=== PATIENT | male | born 1960 | race Caucasian/White ===

== ENCOUNTER 2019-02-13 13:45 | Outpatient (CLI) | payer BC ==
--- NOTE | 2019-02-13 15:49 | MRI ---
MRI LUMBAR SPINE WITHOUT CONTRAST: Date: 02/13/19 Multiplanar, multisequential images of lumbar spine obtained. INDICATION: Low back pain. Spinal stenosis. Right leg numbness and weakness. Comparison made to MRI lumbar spine dated 07/09/17. FINDINGS: Lumbar vertebra maintain height. Moderate degenerative changes are seen throughout the lumbar spine. Mild anterolisthesis at L4-5 is again noted, measured at approximately 5.0 mm. This was described pre viously. Slight posterolisthesis at L5-S1 is also again noted, unchanged. At L1-2, mild disc bulge flattens the thecal sac. No significant central canal or foraminal stenosis. No interval change. At L2-3, mild diffuse disc bulge flattens the thecal sac. Facet hypertrophy. Mild central canal steno sis. Bilateral foraminal stenosis, more prominent on the left. Stable from prior exam. At L3-4, diffuse disc bulge flattens the thecal sac. Facet hypertrophy is prominent. Mild central can al stenosis. Bilateral foraminal stenosis. At L4-5, anterolisthesis. Diffuse disc bulge. Prominent facet hypertrophy. Moderate central canal ministerio nosis. Bilateral foraminal stenosis. Asymmetric disc bulge and osteophyte complex extends into the ri ght foramina. At L5-S1, diffuse disc bulge with asymmetric bulge paracentrally to the right with extension into the right foramina. Facet hypertrophy. Right foraminal stenosis and encroachment. Displacement of the tr aversing right S1 nerve root. Mild central canal stenosis. Disc osteophyte complex projects to the ri ght and encroaches into the right foramina. The findings at the L5-S1 level do not appear significantly changed when compared to 2017. IMPRESSION: Degenerative disc changes throughout the lumbar spine. See findings at each level above. Findings do not appear significantly changed from 2017. POS: [facility]
--- NOTE | 2019-02-13 16:00 | MRI ---
CERVICAL SPINE MRI WITHOUT CONTRAST: HISTORY: Cervical spinal stenosis. Right leg numbness and weakness. Bilateral hand numbness and tingling. COMPARISON: None. TECHNIQUE: Cervical spine MRI is performed without intravenous Gadolinium administration. Multisequential, mult iplanar imaging is performed. FINDINGS: Appropriate T1 marrow signal intensity of the cervical vertebrae. Cervical spine vertebral body heig ht is maintained. No fracture. No significant STIR hyperintensity to suggest vertebral body edema o r ligamentous injury. Visualized brain parenchyma is unremarkable. There is atrophy of the cervical cord at C5-C6. There is T2 signal abnormality suggesting cord malacia. C2-C3: Broad-based disk-osteophyte complex. No significant central canal stenosis. Mild right and minimal left foraminal narrowing due to uncovertebral hypertrophy. C3-C4: There a central/left paracentral disk-osteophyte complex that causes mass effect upon the lef t aspect of the cord. Overall, there is mild central canal stenosis. Moderate bilateral foraminal n arrowing due to uncovertebral hypertrophy. C4-C5: Broad-based disk-osteophyte complex abuts the thecal sac. Mild central canal stenosis. Dege nerative changes in the bilateral uncovertebral joints result in severe right and moderate left cornelio inal narrowing. C5-C6: There is a broad-based disk-osteophyte complex which causes severe central canal stenosis. M oderate to severe bilateral foraminal narrowing due to uncovertebral hypertrophy. C6-C7: Broad-based disk-osteophyte complex abuts the thecal sac. Mild central canal stenosis. Mode rate to severe bilateral foraminal narrowing due to uncovertebral hypertrophy. C7-T1: No significant central canal stenosis or foraminal narrowing. IMPRESSION: 1. Degenerative disk disease at C3-C4 with mass effect upon the left hemicord. 2. 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 POS: OFF
--- NOTE | 2019-02-13 16:10 | MRI ---
THORACIC SPINE MRI WITHOUT CONTRAST: 02/13/19 HISTORY: Spinal stenosis. Leg and arm numbness/tingling. COMPARISON: None. TECHNIQUE: Thoracic spine MRI is performed without intravenous gadolinium administration. Multisequential, multi planar imaging is performed. FINDINGS: There is appropriate T1 marrow signal intensity of the thoracic vertebrae. Thoracic spine vertebral b adolfo height is maintained. There is no fracture. There is no significant STIR hyperintensity to sugges t vertebral body edema or ligamentous injury. The thoracic cord has a normal size and signal intensity. No cord malacia. No cord expansion. No T2 h yperintensity within the cord. The visualized retroperitoneal structures and solid organs are unremarkable. The visualized mediastin um, lung parenchyma and pleural spaces are unremarkable. T1-T2, T2-T3, T3-T4, T4-T5: No significant central canal stenosis or foraminal narrowing. T5-T6: Mild central canal stenosis secondary to left and right paracentral disc bulges. T6-T7: There is an anterior right disc protrusion that deforms the right aspect of the thecal sac and right cord. Mild to moderate central canal stenosis. No signal abnormality in the cord. T7-T8: There is a right paracentral osteophyte ridge that deforms the thecal sac and deforms the righ t aspect of the cord. Mild central canal stenosis. No signal abnormality of the cord. T8-T9, T9-T10, T10-T11, T11-T12 and T12-L1 do not have any significant central canal stenosis. No aparna dence of high grade foraminal narrowing. IMPRESSION: Degenerative changes of the thoracic spine as above. There is mass effect upon the right aspect of th e central spinal canal at T6-T7, T7-T8. POS: OFF
== END 2019-02-13 13:46 | disposition home or self-care (01) ==
LOC: TBSIIMAG 13:45
PROVIDERS: ATTEND Anesthesiology Pain Medicine
DX: M48.02 Spinal stenosis, cervical region (principal); M47.814 Spondylosis without myelopathy or radiculopathy, thoracic region; G95.89 Other specified diseases of spinal cord; M50.31 Other cervical disc degeneration, high cervical region; M51.36 Other intervertebral disc degeneration, lumbar region; M48.07 Spinal stenosis, lumbosacral region; M51.9 Unspecified thoracic, thoracolumbar and lumbosacral intervertebral disc disorder; M47.816 Spondylosis without myelopathy or radiculopathy, lumbar region; M25.78 Osteophyte, vertebrae; M50.91 Cervical disc disorder, unspecified, high cervical region; M47.817 Spondylosis without myelopathy or radiculopathy, lumbosacral region; M48.9 Spondylopathy, unspecified
CPT/HCPCS: 72141; 72146; 72148

== ENCOUNTER 2019-02-24 08:43 | Outpatient (CLI) | payer BC ==
[2019-02-24 10:13] LABS: Hemoglobin 14.9 g/dL (14.0-18.0); Mean Corpuscular HGB CONC 32.1 g/dL (32.0-36.0); Mean Corpuscular Hemoglobin 29.4 pg (27.0-31.0); Mean Corpuscular Volume 91.5 fL (78.0-98.0); Mean Platelet Volume 8.1 fL (7.4-10.4); Platelet Count 254 thou/uL (130-400); Red Blood Cell (RBC) Count 5.06 mill/uL (4.70-6.10); White Blood Cell (WBC) Count 12.6 thou/uL (4.8-10.8)
[2019-02-24 10:36] LABS: Anion Gap 12 mmol/L (10-20); BUN (Urea Nitrogen) 17 mg/dL (8.4-25.7); Calc. Creatinine Clearance 0 mL/min (70-130); Calcium 9.5 mg/dL (7.8-10.44); Carbon Dioxide 26 mmol/L (22-29); Chloride 105 mmol/L (98-107); Estimated GFR-MDRD Greater than 90; Glucose 100 mg/dL (70-105); Potassium 4.8 mmol/L (3.5-5.1); Sodium 138 mmol/L (136-145)
== END 2019-02-24 08:44 | disposition home or self-care (01) ==
LOC: LABBT 08:43
PROVIDERS: ATTEND Neurological Surgery
DX: Z01.818 Encounter for other preprocedural examination (principal); M47.12 Other spondylosis with myelopathy, cervical region
CPT/HCPCS: 80048; 85027; 93005; 93010

== ENCOUNTER 2019-03-02 08:56 | Observation (INO) | payer BC ==
[2019-02-24 08:48] VITALS: BMI 47.5
[2019-03-02] MEDS ORDERED: Thrombin 5000 UNITS/5 ML VIAL ONE (09:38)
[2019-03-02] MEDS ORDERED: Fentanyl 100 MCG/2 ML VIAL ONE (09:54)
[2019-03-02] MEDS ORDERED: Promethazine HCl 25 MG/ML VIAL SLOW IVP PRN (11:19)
[2019-03-02] MEDS ORDERED: Promethazine HCl 25 MG/ML VIAL IM PRN (11:19)
[2019-03-02] MEDS ORDERED: Ondansetron HCl/PF 4 MG/2 ML Vial IVP PRN (11:19)
[2019-03-02] MEDS ORDERED: diphenhydrAMINE 50 MG/ML VIAL IVP PRN (11:28)
[2019-03-02] MEDS ORDERED: Acetaminophen 325 MG TAB PO PRN (11:28)
[2019-03-02] MEDS ORDERED: Morphine 4 MG/ML VIAL SLOW IVP PRN (11:28)
[2019-03-02] MEDS ORDERED: Acetaminophen/Codeine 30-300mg Tablet PO PRN (11:28)
[2019-03-02] MEDS ORDERED: Bisacodyl 10 MG SUPP PR PRN (11:28)
[2019-03-02] MEDS ORDERED: diphenhydrAMINE 25 MG CAP PO PRN (11:28)
[2019-03-02] MEDS ORDERED: Acetaminophen 650 MG Suppository PR PRN (11:28)
[2019-03-02] MEDS ORDERED: Tamsulosin HCl 0.4 MG CAP ONE (11:30)
[2019-03-02] MEDS ORDERED: Ondansetron PF 4 MG/2 ML Vial IVP PRN (11:32)
[2019-03-02] MEDS ORDERED: Lidocaine 1% PF 5 ML VIAL ONE (11:37)
[2019-03-02] MEDS ORDERED: Ondansetron PF 4 MG/2 ML Vial ONE (11:37)
[2019-03-02] MEDS ORDERED: PHENYLEPHRINE-NS 100 MCG/ML 10 ML SYRINGE ONE (11:37)
[2019-03-02] MEDS ORDERED: Rocuronium Bromide 10 MG/ML (10ML VIAL) ONE (11:37)
[2019-03-02] MEDS ORDERED: Glycopyrrolate 0.2 MG/ML 5 ML SYRINGE ONE (11:37)
[2019-03-02] MEDS ORDERED: PROPOFOL 200 MG/20 ML VIAL ONE (11:37)
--- NOTE | 2019-03-02 11:44 | OP ---
DATE OF PROCEDURE: 03/02/2019 REPRESENTATIVE PERSONAL SERVICE: Ajay Bran PA-C INDICATION: Prevent neurologic decline. DIAGNOSIS: Cervical spondylotic myelopathy with cervical stenosis. PROCEDURE PERFORMED: Anterior cervical diskectomy and fusion, C5-C6. ANESTHESIA: General. DESCRIPTION OF PROCEDURE: The patient was brought into the operating room and placed under general anesthesia. He was placed on table in supine position. A transverse incision was planned over the lateral aspect of the neck on the right. After prepping and draping and after an appropriate preoperative pause, the incision was created. The underlying platysma muscle was identified and incised. A blunt tissue plane anterior to the sternocleidomastoid muscle was used to gain access to the prevertebral space. Self-retaining retractors were placed in the wound for optimal exposure. After confirming the appropriate level of C-arm fluoroscopy, an annulotomy was performed in the C5-C6 disk space. All disk material as well as anterior and posterior osteophytes were removed. After completely decompressing the segment, a 6 mm lordotic PEEK cage packed with allograft and autograft material was placed within the interbody space. An anterior cervical plate was then fashioned to the front of spine and secured with a total of 4 fixed screws. Midline lateral structures were then inspected and found to be free from significant trauma. The wound was irrigated. Hemostasis was maintained throughout. The wound was then closed in anatomic layers and a pressure dressing was applied. There were no known procedural complications. Job ID: [id number]
[2019-03-02] MEDS: CEFAZOLIN 2 GM in Premix Bag 1 BAG IVPB SCH ×2 (15:20→22:04)
[2019-03-02] MEDS: Acetaminophen/Codeine 30-300mg Tablet PO PRN (15:23)
[2019-03-02] MEDS: Cyclobenzaprine 10 MG TAB PO PRN (16:35)
[2019-03-02] MEDS: Sodium Chloride 0.9% 1,000 ML IV SCH (16:46)
[2019-03-02] MEDS ORDERED: Zolpidem Tartrate 5 MG TAB PO PRN (16:56)
[2019-03-02] MEDS ORDERED: Cepastat Lozenges 1 LOZ PO PRN (23:47)
[2019-03-03] MEDS: Sodium Chloride 0.9% 1,000 ML IV SCH (03:19)
[2019-03-03] MEDS ORDERED: Tamsulosin HCl 0.4 MG CAP PO SCH (06:00)
[2019-03-03] MEDS: Acetaminophen/Codeine 30-300mg Tablet PO PRN (08:23)
[2019-03-03] MEDS: Cyclobenzaprine 10 MG TAB PO PRN (08:24)
[2019-03-03 11:46] VITALS: BP 156/80; TEMP 98.3
== END 2019-03-03 12:45 | disposition home or self-care (01) ==
LOC: SDC 08:56 → SURG B 11:20
PROVIDERS: ADMIT Neurological Surgery; ATTEND Neurological Surgery
PROC: 0RG10A0 Fusion of Cervical Vertebral Joint with Interbody Fusion Device, Anterior Approach, Anterior Column, Open Approach (ICD-10-PCS; principal; 2019-03-02)
PROC: 0RT30ZZ Resection of Cervical Vertebral Disc, Open Approach (ICD-10-PCS; 2019-03-02)
DX: M47.12 Other spondylosis with myelopathy, cervical region (principal); M48.02 Spinal stenosis, cervical region; Z79.51 Long term (current) use of inhaled steroids; Z79.52 Long term (current) use of systemic steroids; Z79.82 Long term (current) use of aspirin; Z79.899 Other long term (current) drug therapy
CPT/HCPCS: 76000; 96365; 96366; 96375; C1713; C1776; G0378; J0690; J2001; J2270; J2405; J2704; J3010; Q0163